=== PATIENT | female | born 1980 | race African-American/Black ===

== ENCOUNTER 2022-03-14 16:40 | Outpatient (CLI) | payer BC, SELFPAY ==
--- NOTE | ~2022-03-14 | MR_ITS ---
EXAMINATION: MR shoulder LT wo con DATE: 03/14/2022 17:38 INDICATION: Chronic left shoulder pain. TECHNIQUE: Magnetic resonance imaging (MRI) of the left shoulder was performed without intravenous co ntrast. Sequences included axial PD-weighted FS FSE, coronal oblique PD-weighted FS FSE and T2-weight ed FS FSE, and sagittal oblique T2-weighted FS FSE and T1-weighted FSE. COMPARISON: None. FINDINGS: Coracoacromial arch: The acromion undersurface is flat in morphology (type I). The acromioclavicular joint is normal. No s ubacromial/subdeltoid bursitis. Rotator cuff: Supraspinatus, infraspinatus, teres minor, and subscapularis tendons are normal. No tear. There is no asymmetric fatty atrophy of the rotator cuff muscle bellies. Biceps tendon and glenoid labrum: Biceps tendon is in bicipital groove. Intra-articular biceps tendon is normal. The glenoid labrum is normal. Fluid: There is a small glenohumeral joint effusion. Bones/cartilage: Humeral head cartilage is normal. There is partial-thickness cartilage loss of glenoid anteriorly. IMPRESSION: 1. Mild glenoid chondrosis. 2. Small glenohumeral joint effusion. Reviewed, dictated and finalized at location A. ER
== END 2022-03-14 16:41 ==
PROVIDERS: Visit Provider Orthopaedic Surgery
DX: M25.512 Pain in left shoulder (principal); M25.412 Effusion, left shoulder
CPT/HCPCS: 73221